=== PATIENT | female | born 1950 | race Asian ===

== ENCOUNTER 2016-06-23 08:00 | Outpatient (CLI) | payer MEDICARE, OTHER | END 2016-06-23 08:01 | disposition home or self-care (01) | DX: K21.9 Gastro-esophageal reflux disease without esophagitis (principal) ==

== ENCOUNTER 2016-08-21 14:25 | Inpatient (IN) | payer MEDICARE, OTHER ==
--- NOTE | 2016-08-21 14:42 | ED Physician Documentation ---
PD HPI CHEST PAIN - Stated complaint Stated Complaint: SOA/SWEATS/CHILLS - Chief complaint Chief Complaint: Cardiac - History obtained from History obtained from: Patient, Family () - History of Present Illness Timing - onset: Other (For the last month or so she has had intermittent global headaches, she has a pulsation and especially this is in the right temporal artery. It has been associated with myalgias and fatigue. Today she was gardening and felt sudden onset shortness of breath and central diffuse chest pain radiating to the back which is now better. The pain is gone but she still has mild trouble breathing. She has not had any visual changes in this time course.) Review of Systems Ten Systems: 10 systems reviewed and negative Constitutional: reports: Fatigue. 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 - Present Medications Home Medications: Ambulatory Orders Medication Instructions Recorded Confirmed No Known Home Medications [No 08/21/16 08/21/16 Known Home Medications] - Allergies Allergies/Adverse Reactions: Allergies Allergy/AdvReac Type Severity Reaction Status Date / Time wasp Allergy Edema Uncoded 08/21/16 14:39 - Social History Does the pt smoke?: No Smoking Status: Never smoker Does the pt drink ETOH?: No Does the pt have substance abuse?: No - Family History Family history: reports: Non contributory PD ED PE NORMAL - Vitals Vital signs reviewed: Yes - General General: Alert and oriented X 3, No acute distress - HEENT HEENT: PERRL, EOMI, Pharynx benign, Dentition benign - Neck Neck: Supple, no meningeal sign, No bony TTP - Cardiac Cardiac: RRR, No murmur - Respiratory Respiratory: No respiratory distress, Clear bilaterally - Abdomen Abdomen: Normal bowel sounds, Soft, Non tender - Extremities Extremities: No edema, No calf tenderness / cord - Neuro Neuro: Alert and oriented X 3, 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, No motor deficit, No sensory deficit, Normal speech - Psych Psych: Normal mood, Normal affect Results - Vitals Vitals: Vital Signs - 24 hr 08/21/16 08/21/16 08/21/16 14:30 14:33 14:34 Temperature 37.4 C Heart Rate 101 H Respiratory 20 Rate Blood Pressure 136/87 H Blood Pressure 131/66 H [Left] Blood Pressure 136/67 H [Right] O2 Saturation 94 08/21/16 08/21/16 15:49 15:55 Temperature Heart Rate 87 Respiratory 18 Rate Blood Pressure 130/68 Blood Pressure [Left] Blood Pressure [Right] O2 Saturation 98 98 Oxygen O2 Source Nasal cannula - EKG (time done) 1434 Rate: Rate (enter#) (102) Rhythm: Sinus tachycardia Jay: Normal QRS: LVH Ischemia: Normal ST segments. No: ST elevation c/w ischemia Computer interpretation: Agree with computer - Labs Labs: Laboratory Tests 08/21/16 08/21/16 08/21/16 14:44 14:45 14:45 WBC 11.6 H RBC 4.40 Hgb 12.6 Hct 38.0 MCV 86.3 MCH 28.5 MCHC 33.1 RDW 14.4 Plt Count 398 MPV 7.0 L Neut # 9.7 H Lymph # 1.1 L Oxford # 0.5 Eos # 0.1 Baso # 0.1 Absolute Nucleated RBC 0.01 Nucleated RBCs 0.1 ESR 47 H D-Dimer Sodium Potassium Chloride Carbon Dioxide Anion Gap BUN Creatinine Estimated GFR (MDRD) Glucose Calcium Total Bilirubin AST ALT Alkaline Phosphatase Troponin I < 0.04 C-Reactive Protein Total Protein Albumin Globulin Albumin/Globulin Ratio Lipase 08/21/16 08/21/16 14:45 14:45 WBC RBC Hgb Hct MCV MCH MCHC RDW Plt Count MPV Neut # Lymph # Oxford # Eos # Baso # Absolute Nucleated RBC Nucleated RBCs ESR D-Dimer 272.3 H Sodium 133 L Potassium 3.3 L Chloride 102 Carbon Dioxide 21 Anion Gap 10.0 BUN 10 Creatinine 0.8 Estimated GFR (MDRD) 71 L Glucose 132 H Calcium 8.4 L Total Bilirubin 1.1 H AST 86 H ALT 83 H Alkaline Phosphatase 192 H Troponin I C-Reactive Protein 18.8 H Total Protein 7.0 Albumin 3.2 Globulin 3.8 Albumin/Globulin Ratio 0.8 L Lipase 25 - Rads (name of study) Ct Head Radiology: EMP read contemporaneously (atrophy NAD) CXR Radiology: EMP read contemporaneously (normal) PD MEDICAL DECISION MAKING - ED course ED course: Relatively healthy 58-year-old woman presents with a few weeks of ongoing headaches, some concern based on her description for temporal arteritis and she does have elevated inflammatory markers, although not markedly so. Today she had an episode of exertional chest pain and shortness of breath. She has a d- dimer which is below most levels of suspicion for PE. She does have evidence of hepatic inflammation. She does not drink alcohol and she has no tenderness over the gallbladder. Given the chest pain she will be placed in observation for rule out, but would probably also benefit from abdominal ultrasound, and interval follow-up for evaluation for probable temporal artery biopsy. Called to Dr. Potter for admission at 4 PM. Departure - Departure Disposition: ED Place in Observation Clinical Impression: Elevated liver enzymes Headache Qualifiers: Headache type: unspecified Headache chronicity pattern: acute headache Intractability: not intractable Qualified Code(s): R51 - Headache Chest pain Qualifiers: Chest pain type: unspecified Qualified Code(s): R07.9 - Chest pain, unspecified Condition: Stable
[2016-08-21 14:50] LABS: BASOPHILS # (AUTO) 0.1 10^3/uL (0.0-0.1); BASOPHILS % (AUTO) 0.9 %; EOSINOPHILS # (AUTO) 0.1 10^3/uL (0.0-0.7); HGB - HEMOGLOBIN 12.6 g/dL (12.0-16.0); LYMPHOCYTES # (AUTO) 1.1 10^3/uL (1.5-3.5); LYMPHOCYTES % (AUTO) 9.8 %; MEAN CORPUSCULAR HEMOGLOBIN 28.5 pg (27.0-31.0); MEAN CORPUSCULAR HGB CONC 33.1 g/dL (32.0-36.0); MEAN CORPUSCULAR VOLUME 86.3 fL (81.0-99.0); MONOCYTES # (AUTO) 0.5 10^3/uL (0.0-1.0); MONOCYTES % (AUTO) 4.3 %; NEUTROPHILS # (AUTO) 9.7 10^3/uL (1.5-6.6); NUCLEATED RED BLOOD CELLS AUTO 0.1 /100WBC; RED CELL DISTRIBUTION WIDTH 14.4 % (12.0-15.0); UNCORRECTED WHITE BLOOD COUNT 11.6 x10^3/uL; WHITE BLOOD COUNT 11.6 x10^3/uL (4.8-10.8)
[2016-08-21 15:24] LABS: ALBUMIN/GLOBULIN RATIO 0.8 (1.0-2.2); BILIRUBIN,TOTAL 1.1 mg/dL (0.2-1.0); CALCIUM 8.4 mg/dL (8.5-10.3); CREATININE 0.8 mg/dL (0.4-1.0); POTASSIUM 3.3 mmol/L (3.5-5.0)
--- NOTE | 2016-08-21 15:28 | CT Preliminary Report ---
Exam: CT Head W/O IMPRESSION: 1. Mild generalized age-related atrophy. 2. No acute intracranial abnormality. [facility] SITE ID: [id number]
--- NOTE | 2016-08-21 15:30 | CT Report ---
EXAM: CT HEAD EXAM DATE: 08/21/2016 03:06 PM. CLINICAL HISTORY: Headaches. COMPARISON: None. TECHNIQUE: Multiaxial CT images were obtained from the foramen magnum to the vertex. IV contrast: Non e. Reformats: Coronal. In accordance with CT protocol optimization, one or more of the following dose reduction techniques w ere utilized for this exam: automated exposure control, adjustment of mA and/or KV based on patient s ize, or use of iterative reconstructive technique. FINDINGS: Parenchyma: No intraparenchymal hemorrhage, mass effect, or CT findings of evolving acute/subacute in farct. Frank-white differentiation is distinct. Extraaxial Spaces: Mild diffuse sulcal prominence, compatible with generalized atrophy, within expect ed limits for patient age. No subdural or epidural collections identified. Ventricles: Normal in size and position. Sinuses: Imaged paranasal sinuses, orbits, and mastoids show no significant abnormality. Bones: No evidence of fracture or calvarial defect. Other: . Mild atherosclerotic calcifications of the bilateral cavernous internal carotid arteries. IMPRESSION: 1. Mild generalized age-related atrophy. 2. No acute intracranial abnormality. [facility] Referring Provider Line: [phone] SITE ID: [id number]
--- NOTE | 2016-08-21 15:31 | XRAY Preliminary Report ---
Exam: XR Chest 2 View PA/LAT IMPRESSION: Normal 2-view chest radiography. [facility] SITE ID: [id number]
--- NOTE | 2016-08-21 15:34 | XRAY Report ---
EXAM: CHEST RADIOGRAPHY EXAM DATE: 08/21/2016 03:20 PM. CLINICAL HISTORY: Chest pain dyspnea. COMPARISON: None. TECHNIQUE: 2 views. FINDINGS: Lungs/Pleura: No focal opacities evident. No pleural effusion. No pneumothorax. Normal volumes. Mediastinum: Heart and mediastinal contours are unremarkable. Other: None. IMPRESSION: Normal 2-view chest radiography. [facility] Referring Provider Line: [phone] SITE ID: [id number]
[2016-08-21] MEDS ORDERED: ASPIRIN CHEW 81 MG TABLET PO STA (15:59)
[2016-08-21] MEDS ORDERED: ASPIRIN CHEW 81 MG TABLET ONE (16:10)
[2016-08-21] MEDS ORDERED: ONDANSETRON 4 MG/2 ML VIAL IVP PRN (17:21)
[2016-08-21] MEDS ORDERED: ZOLPIDEM 5 MG TABLET PO PRN (17:21)
[2016-08-21] MEDS ORDERED: ACETAMINOPHEN 325 MG TABLET PO PRN (17:21)
[2016-08-21] MEDS ORDERED: SODIUM CHLORIDE FLUSH 0.9% 10 ML SYRINGE IVP PRN (17:21)
[2016-08-21] MEDS ORDERED: IOPAMIDOL-300 100 ML VIAL IVP ONE (17:29)
[2016-08-21] MEDS ORDERED: NITROGLYCERIN SL 0.4 MG TABLET SL PRN (17:30)
[2016-08-21] MEDS ORDERED: POTASSIUM CHLORIDE 20 MEQ TABLET PO SCH (17:46)
[2016-08-21] MEDS ORDERED: SODIUM CHLORIDE 0.9% 1,000 ML IV SCH (18:00)
[2016-08-21 18:03] LABS: CHOL/HDL RATIO 4.5 (<4.4); CHOLESTEROL 134 mg/dL; HDL CHOLESTEROL 30 mg/dL; LDL/HDL RATIO 2.8 (<4.4); TRIGLYCERIDES 99 mg/dL; VLDL CHOLESTEROL 20 mg/dL
--- NOTE | 2016-08-21 18:04 | CT Preliminary Report ---
Exam: CT Chest Angio (PE) IMPRESSION: 1. No evidence for pulmonary emboli. 2. Prominent subcarinal lymph node measuring 9 mm. 3. Mild to moderate patchy airspace disease most prominent at the right upper lobe and left lower lob e. Mild diffuse hazy opacities in the lungs. These are concerning for infectious/inflammatory disease . [facility] SITE ID: [id number]
--- NOTE | 2016-08-21 18:07 | CT Report ---
EXAM: CT ANGIOGRAM CHEST EXAM DATE: 08/21/2016 05:36 PM. CLINICAL HISTORY: Chest pain COMPARISON: None. TECHNIQUE: Routine helical imaging was performed through the chest in the pulmonary arterial phase. I V Contrast: 100 mL Isovue 300. Reconstructions: Coronal 3-D MIP reconstructions.Sagittal and coronal. In accordance with CT protocol optimization, one or more of the following dose reduction techniques w ere utilized for this exam: automated exposure control, adjustment of mA and/or KV based on patient s ize, or use of iterative reconstructive technique. FINDINGS: Pulmonary Arteries: No evidence for pulmonary emboli. Lungs/Pleura: Mild to moderate patchy airspace disease most prominent at the right upper lobe and lef t lower lobe. Mild diffuse hazy opacities in the lungs. These are concerning for infectious/inflammat ory disease. Mediastinum: Normal heart size. Coronary artery calcification.. Prominent subcarinal lymph node measu ring 9 mm. Mildly prominent right hilar lymph node measuring 5 mm. Thoracic Aorta: Unremarkable. Upper Abdomen: Unremarkable. Other: No acute bone findings. IMPRESSION: 1. No evidence for pulmonary emboli. 2. Prominent subcarinal lymph node measuring 9 mm. 3. Mild to moderate patchy airspace disease most prominent at the right upper lobe and left lower lob e. Mild diffuse hazy opacities in the lungs. These are concerning for infectious/inflammatory disease . [facility] Referring Provider Line: [phone] SITE ID: [id number]
[2016-08-21] MEDS ORDERED: IPRATROPIUM/ALBUTEROL 3 ML NEB INH PRN (18:17)
[2016-08-21] MEDS ORDERED: ALBUTEROL 8 GM INHALER INH PRN (18:19)
[2016-08-21] MEDS: SODIUM CHLORIDE FLUSH 0.9% 10 ML SYRINGE IVP SCH (18:25)
--- NOTE | 2016-08-21 18:25 | Ultrasound Preliminary Report ---
Exam: US Abdomen Limited IMPRESSION: Contracted gallbladder. No evidence of biliary obstruction. Echogenic liver. [facility] SITE ID: [id number]
--- NOTE | 2016-08-21 18:28 | Ultrasound Report ---
EXAM: ABDOMEN ULTRASOUND LIMITED, RUQ EXAM DATE: 08/21/2016 06:10 PM. CLINICAL HISTORY: Transaminitis. COMPARISON: None. TECHNIQUE: Real-time scanning was performed with static images obtained. FINDINGS: Liver: The liver is echogenic, compatible with fatty infiltration, with focal sparing adjacent to the falciform. Incidental 1.5 cm hemangioma is noted in the left lobe. 13 cm. Main portal vein flow: Hep atopetal. Gallbladder: Contracted. No definite calculus. Biliary System: CBD measures 3 mm. No intrahepatic or extrahepatic ductal dilatation. Other: None. IMPRESSION: Contracted gallbladder. No evidence of biliary obstruction. Echogenic liver. [facility] Referring Provider Line: [phone] SITE ID: [id number]
[2016-08-21] MEDS ORDERED: ALBUTEROL NEB 2.5 MG/3 ML INH PRN (18:45)
[2016-08-21] MEDS ORDERED: NS W/20 MEQ KCL 1,000 ML IV SCH (19:00)
[2016-08-22 03:15] LABS: BASOPHILS # (AUTO) 0.1 10^3/uL (0.0-0.1); BASOPHILS % (AUTO) 0.7 %; EOSINOPHILS # (AUTO) 0.3 10^3/uL (0.0-0.7); EOSINOPHILS % (AUTO) 2.8 %; LYMPHOCYTES # (AUTO) 1.2 10^3/uL (1.5-3.5); LYMPHOCYTES % (AUTO) 10.5 %; MEAN CORPUSCULAR HEMOGLOBIN 28.2 pg (27.0-31.0); MEAN CORPUSCULAR HGB CONC 32.4 g/dL (32.0-36.0); MEAN CORPUSCULAR VOLUME 87.1 fL (81.0-99.0); MEAN PLATELET VOLUME 6.8 fL (7.9-10.8); MONOCYTES # (AUTO) 0.7 10^3/uL (0.0-1.0); MONOCYTES % (AUTO) 5.9 %; NEUTROPHILS # (AUTO) 8.9 10^3/uL (1.5-6.6); NEUTROPHILS % (AUTO) 80.1 %; RED BLOOD COUNT 4.25 10^6/uL (4.20-5.40); UNCORRECTED WHITE BLOOD COUNT 11.2 x10^3/uL; WHITE BLOOD COUNT 11.2 x10^3/uL (4.8-10.8)
[2016-08-22 03:36] LABS: ALBUMIN/GLOBULIN RATIO 0.8 (1.0-2.2); BILIRUBIN,TOTAL 0.8 mg/dL (0.2-1.0); CALCIUM 8.3 mg/dL (8.5-10.3); CREATININE 0.7 mg/dL (0.4-1.0); POTASSIUM 4.3 mmol/L (3.5-5.0); TOTAL PROTEIN 6.4 g/dL (6.7-8.2)
[2016-08-22] MEDS: SODIUM CHLORIDE FLUSH 0.9% 10 ML SYRINGE IVP SCH ×3 (05:21→21:27)
[2016-08-22] MEDS: AZTREONAM 1 GM in SODIUM CHLORIDE 0.9% MINIBAG 100 ML IV SCH ×3 (08:20→21:26)
[2016-08-22] MEDS: SODIUM CHLORIDE 0.9% 1,000 ML IV SCH ×2 (08:21→22:48)
[2016-08-22] MEDS: ASPIRIN EC 81 MG TABLET PO SCH (08:24)
[2016-08-22] MEDS: FAMOTIDINE 20 MG TABLET PO SCH (08:24)
[2016-08-22] MEDS: predniSONE 20 MG TABLET PO SCH (08:26)
--- NOTE | 2016-08-22 08:29 | HISTORY & PHYSICAL EXAMINATION ---
Chief Complaint - Chief Complaint Chief Complaint: chest pain and headache History of Present Illness - Admitted From Admitted From:: emergence room - History Obtained From Records Reviewed: yes History obtained from: patient and her - History of Present Illness Pain/Problem Location Description: midsternal chest pressure and pain Severity: 5/10 Quality: pressure Timing: morning at 08/21/16 Associated Symptoms: short of air and sweating HPI Comment/Other: 66 years-old female without significant past medical history, who present emergence department for evaluation of headache, chest pain and shortness of air. Patient reports she has bee on intermittent global headache from the frontier to the posterior for one month. She also report she a pulsation feeling at her right temporal area about one week when she had headache. It has been associated with fatigue and myalgias as well. She denies blurring vision or any vision changing. Upon examination on patient, there is no any tenderness , warm or external pulsation at her right temporal area. Patient also report she suddenly develop shortness of air when she was gardening. Also she had chest pressure and pain at her midsternal area. She reports " it likes a elephant sitting on my chest." The pain radiates to her left shoulder as well. She report diaphoresis was associated with her chest pain. She denies nausea, vomiting or diarrhea. Patient report she had a fever couple days ago but she did not measure how much the temperature was. Per emergence nurse report, patient had O2 saturation at mid 80 when she went to the bathroom. patient's O2 saturation is 96% at 2 liter NC. Patient report she has been on healthy status until 2-3 months ago she had discomfort abdomen, bloating stomach and loose stool. She visited her PCP. She report her PCP report to her all her tests were fine. Patient also report after she had 324 mg Aspirin at emergence room, she do feel much better. Lab test reveals WBC 11.6 and left shift, ESR 47, CRP 18.8, AST 86 and ALT 83, Alkaline Phosphatase 192, initiate troponin <0.04, D-Dimer 272.3. EKG shows sinus tachycardia at 102, borderline T abnormality. CXR shows normal 2-view chest radiography. CT of head reveals no acute finding. Due to elevated liver enzyme, US of gallbladder was ordered. The result reveals no evidence of biliary obstruction, echogenic liver. CT angio shows no evidence of PE. in the upper right lobe and left lower lobe, there is concerning for infectious/ inflammatory disease. Patient is admitted for chest pain R/O ACS, pneumonia, and possible temporal arteritis. Review of Systems - Constitutional Constitutional: reports: Fatigue, Fever, Chills, Malaise, Diaphoresis. denies: Weakness, Poor appetite, Night sweats, Weight gain, Weight loss, Other - Eyes Eyes: denies: Pain, Irritation, Amaurosis, Blurred vision, Spots in vision, Field loss, Vision loss, Dipolpia, Corrective lenses, Other - Ears, Nose & Throat Ears, Nose & Throat: denies: Ear pain, Hearing loss, Hearing aids, Tinnitus, Vertigo, Nasal pain, Nasal discharge, Nosebleeds, Nasal obstruction, Nasal congestion, Postnasal drainage, Dentures, Sore throat, Hoarseness, Mouth lesions , Bleeding gums, Dental decay, Dental pain, Other - Cardiovascular Cariovascular: reports: Chest pain. denies: Irregular heart rate, Palpitations , Edema, Lightheadedness, Syncope, Exertional dyspnea, Decr. exercise tolerance , Orthopnea, Other - Respiratory Respiratory: reports: SOB with exertion. denies: Cough, Sputum production, Wheezing, Snoring, Hemoptysis, Orthopnea, SOB at rest, Apnea, Stridor, Pleuritic pain, Other - Gastrointestinal Gastrointestinal: denies: Abdominal pain, Abdominal distention, Constipation, Diarrhea, Change in bowel habits, Rectal bleeding, Black stools, Bloody stools, Nausea, Vomiting, Bile emesis, Marcus blood emesis, Coffee grounds emesis, Reflux /heartburn, Bloating, Poor appetite, Other - Genitourinary Genitourinary: denies: Dysuria, Frequency, Urgency, Hematuria, Incontinence, Flank pain, Nocturia, Urethral discharge, Sexual dysfunction, Other - Musculoskeletal Musculoskeletal: denies: Muscle pain, Back pain, Muscle aches, Stiffness, Limited range of motion, Muscle weakness, Gout, Joint pain, Joint swelling, Other - Integumentary Integumentary: denies: Rash, Pruritis, Lesions, Dryness, Lumps, Acne, Pigment changes, Nail changes, Hair changes, Other - Neurological Neurological: denies: General weakness, Focal weakness, Headache, Dizziness, Numbness, Memory problems, Pre-existing deficit, Abnormal gait, Seizures, Incoordination, Slurred speech, Other - Psychiatric Psychiatric: denies: Depression, Anxiety, Suicidal, Delusions, Hallucinations, Homicidal, Other - Hematologic/Lymphatic Hematologic/Lymphatic: denies: Anemia, Bruising, Petechiae, Blood clots, Lymphadenopathy, Bleeding tendencies, Recurrent infections, Other History - 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 - Family & Social History Family History: Mother: (HTN) Meds/Allgy - Home Medications Home Medications: Ambulatory Orders Medication Instructions Recorded Confirmed Epinephrine [Epipen 2-Lazaro] 0.3 mg IJ PRN PRN 08/21/16 08/21/16 - Allergies Allergies/Adverse Reactions: Allergies Allergy/AdvReac Type Severity Reaction Status Date / Time amoxicillin Allergy Severe Rash Verified 08/21/16 16:28 bee venom protein (honey bee) Allergy Severe Edema Verified 08/21/16 16:28 venom-wasp Allergy Severe Edema Verified 08/21/16 16:28 Exam - Vital Signs Vital Signs: Vital Signs x48h Temp Pulse Pulse Pulse Resp BP BP 08/22/16 08:15 36.8 C 88 17 120/78 08/22/16 07:50 81 18 08/22/16 04:55 36.9 C 78 16 123/77 Pulse Ox 08/22/16 08:15 90 L 08/22/16 07:50 08/22/16 04:55 95 - Physical Exam General Appearance: positive: No acute distress, Alert. negative: Mild distress , Moderate distress, Severe distress, Anxious, Lethargic, Other Eyes Bilateral: positive: Normal inspection, PERRL, EOMI, No lid inflammation, Conjunctivae nml, No scleral icterus ENT: positive: ENT inspection nml, Pharynx nml, No signs of dehydration. negative: Purulent nasal drainage, Pharyngeal erythema, Oral lesions, Dry mucous membranes, Other Neck: positive: Nml inspection, Thyroid nml, No JVD, Trachea midline. negative : Thyromegaly, Lymphadenopathy (R), Lymphadenopathy (L), Stiff neck, Kernig's sign, Brudzinski's sign, Carotid bruit, Swelling/bruising, Tracheal deviation, Other Respiratory: positive: Chest non-tender, No respiratory distress, Rhonchi ( bilateral lower lobes). negative: Breath sounds nml, Wheezes, Rales, Other Cardiovascular: positive: Regular rate & rhythm, No murmur, No gallop. negative : Irregularly irregular, Extrasystoles, Tachycardia, Bradycardia, PMI displaced laterally, JVD present, Systolic murmur, Diastolic murmur, Gallop/S3, Gallop/S4 , Friction rub, Decreased pulse(s), Crepitus, Other Peripheral Pulses: positive: 2+. negative: 1+, 0, Other Abdomen: positive: Non-tender, Nml bowel sounds, No distention. negative: No organomegaly, Tenderness, Guarding, Rebound, Hepatomegaly, Splenomegaly, Mass, Abnml bowel sounds, Bruit, Other Back: positive: Nml inspection. negative: CVA tenderness (R), CVA tenderness (L ), Other Skin: positive: Color nml, No rash, Warm, Diaphoresis. negative: Dry, Cyanosis , Pallor, Skin rash, Decubitus, Laceration (cm), Puncture wound, Embolic lesions , Other Extremities: positive: Non-tender, Full ROM, Nml appearance, No pedal edema. negative: Pedal edema, Calf tenderness, Joint swelling, Saul's sign/cords, Other Neurologic/Psychiatric: positive: Oriented x3, CN's nml (2-12), Motor nml, Sensation nml, Mood/affect nml. negative: Disoriented to person, Disoriented to place, Disoriented to time, Weakness, Sensory loss, Facial droop, Slurred/ abnml speech, Depressed mood/affect, Other Conclusion/Plan - Problem List (1) Chest pain, rule out acute myocardial infarction Conclusion/Plan: no more chest pain after first episode, two serial troponin are negatvie, EKG unremarkable, likely atypical chest pain continue third troponin nitro/EKG PRN Aspirin on tele, closely monitor ECHO, patient does not have any cardiac workup. (2) Acute and chronic respiratory failure with hypoxia Conclusion/Plan: Patient never smoke, does not have any history of COPD or asthma or any other documented respiratory problem, may due to acute lung inflammation/infection. patient appears no acute respiratory distressing now. Patient comfortably sit at bed, SO2 94% at room air. concern new onset of COPD Albuteral INH PRN Duoneb temporal treated with steroid O2 NC as needed (3) Headache Conclusion/Plan: global headache for one month, CT of head is negative acute process. pt does not have headache now Tylenol PRN, closely monitor Qualifiers: Headache type: unspecified Headache chronicity pattern: acute headache Intractability: not intractable Qualified Code(s): R51 - Headache (4) Pneumonia Conclusion/Plan: CTA indicates upper right lobe and lower left lobe with infection or inflammation. Auscultation of lung shows rhonchi at bilateral lower lobes. Subjectively report fever at home, fatigue and myalgia, lower O2 Saturation at episode, pt came from home with symptoms for about one month. treat for CAP Azithromycin Aztreonam, pt allergy to Amoxicillin blood culture, follow up Pt denies to have sputum (5) Elevated liver enzymes Conclusion/Plan: slight elevated ALT and AST, mild to moderate elevated Alk. US of abdomen shows no evidence of biliary obstruction, pt denies abdomen pain as well, no nausea/ vomiting/ diarrhea. may consider hepatitis panel or other virus infection, hold hepatic toxical agents, closely monitor (6) Elevated sed rate Conclusion/Plan: elevated CRP as well, pt had global headache for one month, but not specific, no vision changing, may concern temporal arteritis Pt has prednisone treated for her inflammatory lung continue to check CRP and SER, closely monitor if need further investigation for biopsy (7) DVT prophylaxis Conclusion/Plan: Lovenox and SCD for DVT For GI prophylaxis, pepcid - Lab Results Fish Bones: 08/22/16 03:05 08/22/16 03:05 Issues/Core Measures - Anticipated LOS Anticipated Stay Length: 2 or more midnights (pneumonia)
[2016-08-22] MEDS: AZITHROMYCIN INJ 500 MG in SODIUM CHLORIDE 0.9% 250 ML IV SCH (08:59)
[2016-08-22] MEDS ORDERED: predniSONE 20 MG TABLET PO SCH (09:00)
[2016-08-22] MEDS: POLYETHYLENE GLYCOL 3350 17 GM PACKET PO SCH (09:01)
[2016-08-22] MEDS: ENOXAPARIN 40 MG/0.4 ML SYRINGE SUBQ SCH (09:01)
--- NOTE | 2016-08-22 11:56 | PROVIDER PROGRESS NOTE ---
Subjective - Subjective Pt reports feeling: Improved Subjective: pt initially state she want to be D/C home, then she change idea and state she stay hospital for one more night Objective - Vital Signs/Intake & Output Vital Signs: Vital Signs x48h Temp Pulse Pulse Pulse Resp BP BP 08/22/16 08:15 36.8 C 88 17 120/78 08/22/16 07:50 81 18 08/22/16 04:55 36.9 C 78 16 123/77 Pulse Ox 08/22/16 08:15 90 L 08/22/16 07:50 08/22/16 04:55 95 Intake & Output: Intake & Output 08/19/16 08/20/16 08/21/16 08/22/16 23:59 23:59 23:59 23:59 Intake Total 322 1325 Balance 322 1325 - Objective General Appearance: positive: No acute distress, Alert. negative: Mild distress , Moderate distress, Severe distress, Anxious, Lethargic, Other Eyes Bilateral: positive: Normal inspection, PERRL, EOMI, No lid inflammation, Conjunctivae nml, No scleral icterus. negative: Other ENT: positive: ENT inspection nml, Pharynx nml, No signs of dehydration. negative: Purulent nasal drainage, Pharyngeal erythema, Oral lesions, Dry mucous membranes, Other Neck: positive: Nml inspection, Thyroid nml, No JVD, Trachea midline. negative : Thyromegaly, Lymphadenopathy (R), Lymphadenopathy (L), Stiff neck, Kernig's sign, Brudzinski's sign, Carotid bruit, Swelling/bruising, Tracheal deviation, Other Respiratory: positive: Chest non-tender, No respiratory distress, Other ( rhonchi at bilateral lower lobes). negative: Breath sounds nml, Wheezes, Rales , Rhonchi Cardiovascular: positive: Regular rate & rhythm, No murmur, No gallop. negative : Irregularly irregular, Extrasystoles, Tachycardia, Bradycardia, PMI displaced laterally, JVD present, Systolic murmur, Diastolic murmur, Gallop/S3, Gallop/S4 , Friction rub, Decreased pulse(s), Crepitus, Other Peripheral Pulses: 2+ Radial (R), 2+ Radial (L), 2+ Dorsalis pedis (R), 2+ Dorsalis pedis (L) Abdomen: positive: Non-tender, Nml bowel sounds, No distention. negative: No organomegaly, Tenderness, Guarding, Rebound, Hepatomegaly, Splenomegaly, Mass, Abnml bowel sounds, Bruit, Other Back: positive: Nml inspection. negative: CVA tenderness (R), CVA tenderness (L ), Other Skin: positive: Color nml, Warm. negative: No rash, Dry, Cyanosis, Diaphoresis , Pallor, Skin rash, Decubitus, Laceration (cm), Puncture wound, Embolic lesions , Other Extremities: positive: Non-tender, Full ROM, Nml appearance, No pedal edema. negative: Pedal edema, Calf tenderness, Joint swelling, Saul's sign/cords, Other Neurologic/Psychiatric: positive: Oriented x3, CN's nml (2-12), Motor nml, Sensation nml, Mood/affect nml. negative: Disoriented to person, Disoriented to place, Disoriented to time, Weakness, Sensory loss, Facial droop, Slurred/ abnml speech, Depressed mood/affect, Other - Lab Results Fish Bones: 08/22/16 03:05 08/22/16 03:05 Other Labs: Lab Results x24hrs 08/22/16 08/22/16 08/22/16 Range/Units 03:05 03:05 03:05 WBC 11.2 H (4.8-10.8) x10^3/uL RBC 4.25 (4.20-5.40) 10^6/uL Hgb 12.0 (12.0-16.0) g/dL Hct 37.0 (37.0-47.0) % MCV 87.1 (81.0-99.0) fL MCH 28.2 (27.0-31.0) pg MCHC 32.4 (32.0-36.0) g/dL RDW 14.0 (12.0-15.0) % Plt Count 407 (130-450) 10^3/uL MPV 6.8 L (7.9-10.8) fL Neut # 8.9 H (1.5-6.6) 10^3/uL Lymph # 1.2 L (1.5-3.5) 10^3/uL [place] # 0.7 (0.0-1.0) 10^3/uL Eos # 0.3 (0.0-0.7) 10^3/uL Baso # 0.1 (0.0-0.1) 10^3/uL Absolute Nucleated RBC 0.00 x10^3/uL Nucleated RBCs 0.0 /100WBC Sodium 133 L (135-145) mmol/L Potassium 4.3 (3.5-5.0) mmol/L Chloride 105 (101-111) mmol/L Carbon Dioxide 21 (21-32) mmol/L Anion Gap 7.0 (6-13) BUN 10 (6-20) mg/dL Creatinine 0.7 (0.4-1.0) mg/dL Estimated GFR (MDRD) 83 L (>89) Glucose 113 H (70-100) mg/dL Calcium 8.3 L (8.5-10.3) mg/dL Total Bilirubin 0.8 (0.2-1.0) mg/dL AST 51 H (10-42) IU/L ALT 69 H (10-60) IU/L Alkaline Phosphatase 193 H (42-121) IU/L Troponin I < 0.04 (<0.49) ng/mL Total Protein 6.4 L (6.7-8.2) g/dL Albumin 2.8 L (3.2-5.5) g/dL Globulin 3.6 (2.1-4.2) g/dL Albumin/Globulin Ratio 0.8 L (1.0-2.2) 08/21/16 Range/Units 21:01 WBC (4.8-10.8) x10^3/uL RBC (4.20-5.40) 10^6/uL Hgb (12.0-16.0) g/dL Hct (37.0-47.0) % MCV (81.0-99.0) fL MCH (27.0-31.0) pg MCHC (32.0-36.0) g/dL RDW (12.0-15.0) % Plt Count (130-450) 10^3/uL MPV (7.9-10.8) fL Neut # (1.5-6.6) 10^3/uL Lymph # (1.5-3.5) 10^3/uL [place] # (0.0-1.0) 10^3/uL Eos # (0.0-0.7) 10^3/uL Baso # (0.0-0.1) 10^3/uL Absolute Nucleated RBC x10^3/uL Nucleated RBCs /100WBC Sodium (135-145) mmol/L Potassium (3.5-5.0) mmol/L Chloride (101-111) mmol/L Carbon Dioxide (21-32) mmol/L Anion Gap (6-13) BUN (6-20) mg/dL Creatinine (0.4-1.0) mg/dL Estimated GFR (MDRD) (>89) Glucose (70-100) mg/dL Calcium (8.5-10.3) mg/dL Total Bilirubin (0.2-1.0) mg/dL AST (10-42) IU/L ALT (10-60) IU/L Alkaline Phosphatase (42-121) IU/L Troponin I < 0.04 (<0.49) ng/mL Total Protein (6.7-8.2) g/dL Albumin (3.2-5.5) g/dL Globulin (2.1-4.2) g/dL Albumin/Globulin Ratio (1.0-2.2) Assessment/Plan - Problem List (1) Chest pain, rule out acute myocardial infarction Impression: no more chest pain, ECHO pending (2) Acute and chronic respiratory failure with hypoxia Impression: pt refuse to use O2 NC, she does not have respiratory distressing currently (3) Headache Qualifiers: Headache type: unspecified Headache chronicity pattern: acute headache Intractability: not intractable Qualified Code(s): R51 - Headache (6) Elevated sed rate Impression: order continue to check CRP and ESR
[2016-08-22] MEDS: IPRATROPIUM/ALBUTEROL 3 ML NEB INH SCH ×3 (12:49→19:39)
[2016-08-23] MEDS: AZTREONAM 1 GM in SODIUM CHLORIDE 0.9% MINIBAG 100 ML IV SCH ×2 (04:39→09:59)
[2016-08-23] MEDS: SODIUM CHLORIDE FLUSH 0.9% 10 ML SYRINGE IVP SCH (05:50)
[2016-08-23] MEDS: IPRATROPIUM/ALBUTEROL 3 ML NEB INH SCH ×2 (07:30→11:20)
[2016-08-23 07:46] VITALS: BP 128/74
[2016-08-23] MEDS: predniSONE 20 MG TABLET PO SCH (08:34)
[2016-08-23] MEDS: ENOXAPARIN 40 MG/0.4 ML SYRINGE SUBQ SCH (08:34)
[2016-08-23] MEDS: FAMOTIDINE 20 MG TABLET PO SCH (08:34)
[2016-08-23] MEDS: ASPIRIN EC 81 MG TABLET PO SCH (08:34)
[2016-08-23] MEDS: AZITHROMYCIN INJ 500 MG in SODIUM CHLORIDE 0.9% 250 ML IV SCH (08:34)
[2016-08-23] MEDS: POLYETHYLENE GLYCOL 3350 17 GM PACKET PO SCH (08:35)
[2016-08-23] MEDS: SODIUM CHLORIDE 0.9% 1,000 ML IV SCH (09:59)
--- NOTE | 2016-08-23 11:55 | Discharge Plan ---
Discharge Plan Disposition: 01 Home, Self Care Condition: Stable Prescriptions: predniSONE [Deltasone] 40 mg PO DAILYWM #6 tablet Albuterol Sulfate [Proair Hfa Inhaler] 1 - 2 puffs INH Q4H PRN #1 inhaler PRN Reason: Shortness Of Air/Wheezing Azithromycin [Zithromax] 250 mg PO DAILY #5 Diet: Regular Activity Restrictions: No Restrictions Shower Restrictions: No Driving Restrictions: No Additional Instructions or Follow Up instructions: You have pneumonia, you will continue azithromycin to treat this. You can use albuterol inhaler for shortness of breath or wheezing. You need to see your PCP in a week for chest x-ray to ensure this resolves. Your headache and temporal pain is concerning, you have been started on steroids and symptoms resolved. If symptoms return contact Dr Turner for further work-up. No Smoking: If you smoke, Please STOP! Call for help. Follow-up with: Kelsey Turner DO [Primary Care Provider] - 1 Week
--- NOTE | 2016-08-23 13:34 | DISCHARGE SUMMARY ---
DATE OF ADMISSION: 08/21/2016 DATE OF DISCHARGE: 08/23/2016 DISCHARGING PROVIDER: INA uMnoz PRIMARY CARE PROVIDER: Kelesy Turner D.O. DISCHARGE DIAGNOSES 1. Community-acquired pneumonia. 2. Headache. 3. Elevated liver function tests. DISCHARGE MEDICATION LIST 1. Tylenol 650 mg 5 mL every 4 hours as needed for pain. 2. Albuterol inhaler 1 to 2 puffs every 4 hours as needed for shortness of breath or wheezing. 3. Azithromycin 250 mg by mouth daily x3 more days. 4. Prednisone 40 mg by mouth daily. FOLLOWUP: Patient is to follow up with Dr. Kelsey Turner in 1 week for a repeat chest x-ray to ensure resolution of her community-acquired pneumonia. If right temporal pain and pulsations with headache return after stopping steroids, further workup would be necessary. HISTORY OF PRESENT ILLNESS: The patient is a pleasant 66-year-old female with no significant pa medical history who presented to the emergency room with complaints of chest pain and shortness of air that began shortly before arrival. She also had reports of headache for the last month, with rig ht temporal pain, sensitivity, and pulsation. She was noted in the emergency department to have a min imally elevated WBC of 11.6, negative troponin, and a D-dimer of 272. CTA was obtained to rule out PE and it revealed a right upper lobe and left lower leg patchy infiltrate concerning for pneumonia. Th e patient was therefore hospitalized. HOSPITAL COURSE: The patient was admitted to the medical/surgical floor in stable condition. Her radha l signs were within normal limits. She had no significant hypoxia but was briefly on oxygen per nasal cannula for her symptomatic shortness of breath. She was started on aztreonam and azithromycin IV fo r her community-acquired pneumonia, in addition to albuterol and DuoNebs for shortness of breath. She was given prednisone 40 mg daily which she has had no significant side effects from. On admission, patient was noted to have elevated total bilirubin 1.1, AST 86, ALT 83, alkaline phosph atase 192. These improved to 0.8, 51, 69, 193, respectively. Imaging without focal biliary or hepatic disease. Lipid panel within normal limits. Lipase normal. The morning of 08/23/2016, the patient is completely asymptomatic, feels her usual self, no shortness of breath, no chest pain, no headache or right temporal pain. Patient was noted to have elevated CRP of 18 and ESR 47. With this finding and her minimally elevated LFTs, there was concern for temporal or giant cell arteritis. She had no other neurological symptoms, absolutely no vision changes, no jaw pain, no ENT symptoms. I discussed the case with Dr. Juan Pablo Olvera of Ophthalmology, who felt this was low risk for giant cell arteritis, but if symptoms returned could follow up with PCP for further workup. The patient was then discharged home with oral antibiotics and steroids, to follow up with her PCP in a week. RADIOLOGY: On 08/21/2016: 1. Chest x-ray. Impression: Normal 2-view chest radiograph. 2. CT of the head. Impression: Mild generalized age-related atrophy, no acute intracranial abnormalit y. 3. Abdominal ultrasound. Impression: Contracted gallbladder, no evidence of biliary obstruction, fatt y infiltration of the liver. 4. CTA chest. Impression: No evidence for pulmonary emboli. Prominent subcarinal lymph node measuring 9 mm. Mild to moderate patchy air space disease, most prominent at the right upper lobe and left low er lobe, mild diffuse hazy opacities in the lungs. These are concerning for infectious inflammatory d isease. PHYSICAL EXAMINATION VITAL SIGNS: Temperature 36.5 degrees Celsius, heart rate 70 beats per minute, blood pressure 128/74, respiratory rate 16 breaths per minute, O2 saturation 97% on room air. GENERAL: Patient is a petite, 66-year-old female sitting on the bed in no acute distress. She i s able to get up independently and ambulate in the room without distress. She has a steady gait. LUNGS: Her respirations are equal and unlabored. She has minimally coarse right upper breath sounds a nd left lower lobe breath sounds. She has no wheezing. CARDIOVASCULAR: She has a regular rate and rhythm. No murmurs, gallops, or rubs. Palpable peripheral pulses and no extremity edema. ABDOMEN: Soft, flat, nontender, with active bowel sounds x4 quadrants. MUSCULOSKELETAL: She has no joint swelling. SKIN: No rashes or wounds. NEUROLOGIC: No focal neurological deficits. HEENT: She has no temporal tenderness, no jaw pain. Time spent on discharge is greater than 30 minutes. JOB #: [id number] EXT JOB #:[id number]
== END 2016-08-23 12:57 | disposition home or self-care (01) | DRG 193 ==
LOC: ED 14:25 → MS 17:22
PROVIDERS: ADMIT Nurse Practitioner Gerontology; ATTEND Nurse Practitioner Acute Care
DX: R07.9 Chest pain, unspecified (principal); J18.9 Pneumonia, unspecified organism; J96.21 Acute and chronic respiratory failure with hypoxia; R51 Headache; R94.5 Abnormal results of liver function studies; R53.83 Other fatigue; Z88.0 Allergy status to penicillin
CPT/HCPCS: 36415; 70450; 71020; 71275; 76705; 80053; 80061; 83605; 83690; 83880; 84484; 85025; 85379; 85651; 86140; 87040; 93005; 93306; 94640; 99283; 99284; 99285

== ENCOUNTER 2016-09-13 09:15 | Outpatient (CLI) | payer MEDICARE, OTHER ==
[2016-09-13 13:11] LABS: BASOPHILS # (AUTO) 0.1 10^3/uL (0.0-0.1); EOSINOPHILS # (AUTO) 0.7 10^3/uL (0.0-0.7); EOSINOPHILS % (AUTO) 7.6 %; HCT - HEMATOCRIT 41.5 % (37.0-47.0); HGB - HEMOGLOBIN 13.2 g/dL (12.0-16.0); LYMPHOCYTES # (AUTO) 2.6 10^3/uL (1.5-3.5); MEAN CORPUSCULAR HEMOGLOBIN 28.4 pg (27.0-31.0); MEAN PLATELET VOLUME 7.7 fL (7.9-10.8); MONOCYTES # (AUTO) 0.5 10^3/uL (0.0-1.0); MONOCYTES % (AUTO) 5.8 %; NEUTROPHILS # (AUTO) 5.3 10^3/uL (1.5-6.6); NEUTROPHILS % (AUTO) 57.6 %; RED BLOOD COUNT 4.66 10^6/uL (4.20-5.40); RED CELL DISTRIBUTION WIDTH 15.1 % (12.0-15.0); UNCORRECTED WHITE BLOOD COUNT 9.3 x10^3/uL; WHITE BLOOD COUNT 9.3 x10^3/uL (4.8-10.8)
[2016-09-13 13:42] LABS: BILIRUBIN,TOTAL 0.4 mg/dL (0.2-1.0); BUN - BLOOD UREA NITROGEN 9 mg/dL (6-20); CALCIUM 9.3 mg/dL (8.5-10.3); CARBON DIOXIDE - CO2 24 mmol/L (21-32); CHLORIDE 105 mmol/L (101-111); CREATININE 0.7 mg/dL (0.4-1.0); GFR - MDRD 83 (>89); GLUCOSE 94 mg/dL (70-100); POTASSIUM 3.9 mmol/L (3.5-5.0); SODIUM 139 mmol/L (135-145); TOTAL PROTEIN 7.7 g/dL (6.7-8.2)
== END 2016-09-13 09:16 | disposition home or self-care (01) ==
LOC: LAB.WCP 09:15
PROVIDERS: ATTEND Family Medicine
DX: J15.9 Unspecified bacterial pneumonia (principal)
CPT/HCPCS: 36415; 80053; 85025; 85651; 86140

== ENCOUNTER 2017-12-18 15:32 | Outpatient (CLI) | payer MEDICARE, OTHER ==
--- NOTE | 2017-12-18 22:53 | XRAY Report ---
Reason: KNEE PAIN,LEFT AND RIGHT Procedure Date: 12/18/2017 Accession Number: [id number] / [id number] Procedure: XR - Knee 2 View BILAT CPT Code: FULL RESULT: EXAM: BILATERAL KNEE RADIOGRAPHY EXAM DATE: 12/18/2017 03:55 PM. CLINICAL HISTORY: KNEE Pain, left AND RIGHT. COMPARISON: None. TECHNIQUE: Each knee, 2 views. FINDINGS: Bones: Osteopenia. No definite fracture or other bone lesion. Joints: Joint space narrowing with marginal osteophytes. No definite effusion. Soft Tissues: Unremarkable. IMPRESSION: Moderate degenerative joint disease. RADIA
== END 2017-12-18 15:33 | disposition home or self-care (01) ==
LOC: DI 15:32
PROVIDERS: ATTEND Family Medicine
DX: M17.0 Bilateral primary osteoarthritis of knee (principal); M85.862 Other specified disorders of bone density and structure, left lower leg; M85.861 Other specified disorders of bone density and structure, right lower leg; G62.9 Polyneuropathy, unspecified; R70.0 Elevated erythrocyte sedimentation rate
CPT/HCPCS: 36415; 73565; 80053; 82607; 83036; 84155; 84165; 85025; 85651; 86140

== ENCOUNTER → 2017-12-18 | Outpatient (CLI) | payer MEDICARE, OTHER ==
[2017-12-18 18:50] LABS: BASOPHILS # (AUTO) 0.1 10^3/uL (0.0-0.1); EOSINOPHILS # (AUTO) 0.2 10^3/uL (0.0-0.7); EOSINOPHILS % (AUTO) 1.6 %; HGB - HEMOGLOBIN 14.6 g/dL (12.0-16.0); LYMPHOCYTES # (AUTO) 2.9 10^3/uL (1.5-3.5); LYMPHOCYTES % (AUTO) 30.5 %; MEAN CORPUSCULAR HEMOGLOBIN 29.3 pg (27.0-31.0); MEAN CORPUSCULAR HGB CONC 32.1 g/dL (32.0-36.0); MEAN CORPUSCULAR VOLUME 91.2 fL (81.0-99.0); MONOCYTES # (AUTO) 0.8 10^3/uL (0.0-1.0); NEUTROPHILS # (AUTO) 5.6 10^3/uL (1.5-6.6); NEUTROPHILS % (AUTO) 58.9 %; PLT - PLATELET COUNT 322 10^3/uL (130-450); RED CELL DISTRIBUTION WIDTH 15.1 % (12.0-15.0); WHITE BLOOD COUNT 9.5 x10^3/uL (4.8-10.8)
[2017-12-18 19:11] LABS: ALBUMIN 4.4 g/dL (3.2-5.5); ALBUMIN/GLOBULIN RATIO 1.3 (1.0-2.2); ALKALINE PHOSPHATASE 97 IU/L (42-121); ALT ALANINE AMINOTRANSFERASE 16 IU/L (10-60); AST ASPARTATE AMINOTRANSFERASE 26 IU/L (10-42); BILIRUBIN,TOTAL 0.5 mg/dL (0.2-1.0); BUN - BLOOD UREA NITROGEN 13 mg/dL (6-20); CALCIUM 9.3 mg/dL (8.5-10.3); CARBON DIOXIDE - CO2 25 mmol/L (21-32); CHLORIDE 104 mmol/L (101-111); CREATININE 0.7 mg/dL (0.4-1.0); GFR - MDRD 83 (>89); GLUCOSE 82 mg/dL (70-100); SODIUM 137 mmol/L (135-145); TOTAL PROTEIN 7.7 g/dL (6.7-8.2)
[2017-12-18 19:33] LABS: CRP - C-REACTIVE PROTEIN < 1.0 mg/dL (0-1.0)
[2017-12-18 19:37] LABS: HB2 TOTAL 15.2 g/dL; HEMOGLOBIN A1C 0.56 g/dL; HEMOGLOBIN A1C % 5.5 % (4.6-6.2)
[2017-12-20 23:11] LABS: ALBUMIN 4.3 g/dL (3.8-4.8); ALPHA 1 GLOBULIN 0.3 g/dL (0.2-0.3); ALPHA 2 GLOBULIN 0.7 g/dL (0.5-0.9); BETA 1 GLOBULIN 0.5 g/dL (0.4-0.6); BETA 2 GLOBULIN 0.4 g/dL (0.2-0.5); GAMMA GLOBULIN 1.1 g/dL (0.8-1.7)
== END ==
LOC: LAB.WCP 14:32
PROVIDERS: ATTEND Family Medicine
DX: G62.9 Polyneuropathy, unspecified (principal); R73.01 Impaired fasting glucose; R70.0 Elevated erythrocyte sedimentation rate
CPT/HCPCS: 36415; 80053; 82607; 83036; 84155; 84165; 84443; 85025; 85651; 86140

== ENCOUNTER 2018-05-10 09:10 | Outpatient (CLI) | payer MEDICARE, OTHER ==
--- NOTE | 2018-05-10 15:54 | MRI Report ---
Reason: LUMBAR RADICULOPATHY Procedure Date: 05/10/2018 Accession Number: [id number] / [id number] Procedure: MRI - Lumbar Spine W/O CPT Code: FULL RESULT: EXAM: MRI LUMBAR SPINE WITHOUT CONTRAST EXAM DATE: 05/10/2018 09:36 AM. CLINICAL HISTORY: Lumbar radiculopathy. Low back pain for years. Left leg numbness. Bilateral feet numbness. Remote fall. COMPARISON: None. TECHNIQUE: Multiplanar, multisequence T1-weighted and fluid-sensitive sequences of the lumbar spine from T12 to S1 without contrast. Other: None. FINDINGS: Numbering assumes 5 [id number] lumbar-type vertebral bodies. No suspicious marrow replacement is present. No abnormal signal is seen in the conus medullaris. Grade 1 anterolisthesis of L4 relative to L5 is present. Facet/ligamentum flavum hypertrophy is seen throughout the lumbar spine greatest at L4-L5 and L5-S1. It is severe at L4-L5. T9 through T12: No posterior disk protrusion on the sagittal views. T12 through L2: No posterior disk protrusion. L2-L3: A minimal posterior disk protrusion is seen. There is a far lateral component on the left. L3-L4: No significant posterior disk protrusion. L4-L5: No significant posterior disk protrusion. Medial to the left facet joint note is made of a 4 x 5 x 7 mm anterior posterior by transverse by craniocaudal T2 hypointense peripherally and T2 hyperintense centrally lesion. This demonstrates mass-effect on the left ventral thecal sac and extends into the left lateral recess. Bilateral lateral recess stenosis is seen much greater on the left relative to the right. Moderate central canal stenosis is seen. No foraminal stenosis. L5-S1: No posterior disk protrusion is seen. Superior lateral recess narrowing is present bilaterally. IMPRESSION: 1. Facet/ligamentum flavum hypertrophy, spondylolisthesis, and a left-sided synovial cyst results in moderate central canal stenosis at L4-L5 and bilateral lateral recess stenosis much greater on the left relative to the right. 2. Minimal degenerative disk disease is seen at L2-L3 without central canal or foraminal stenosis. Comment: The following findings are so common in adults without low back pain that while we report their presence, they must be interpreted with caution and in the context of the clinical situation. (Reference Jimenak et al, Spine 2001) Prevalence of findings in patients without low back pain: Disk degeneration (any evidence): 92% Disk desiccation/T2 signal loss: 83% Disk height loss: 56% Disk bulge: 64% Disk protrusion: 32% Annular tear/high intensity zone: 38% RADIA
== END 2018-05-10 09:11 | disposition home or self-care (01) ==
LOC: DI 09:10
PROVIDERS: ATTEND Family Medicine
DX: M51.16 Intervertebral disc disorders with radiculopathy, lumbar region (principal); M48.061 Spinal stenosis, lumbar region without neurogenic claudication
CPT/HCPCS: 72148

== ENCOUNTER 2018-06-22 08:48 | Outpatient (CLI) | payer MEDICARE, OTHER ==
[2018-06-22 09:11] LABS: HGB - HEMOGLOBIN 14.2 g/dL (12.0-16.0); MEAN CORPUSCULAR HEMOGLOBIN 28.7 pg (27.0-31.0); MEAN CORPUSCULAR HGB CONC 31.7 g/dL (32.0-36.0); MEAN CORPUSCULAR VOLUME 90.5 fL (81.0-99.0); MEAN PLATELET VOLUME 7.7 fL (7.9-10.8); RED BLOOD COUNT 4.96 10^6/uL (4.20-5.40); WHITE BLOOD COUNT 8.9 x10^3/uL (4.8-10.8)
[2018-06-22 09:17] LABS: CALCIUM 9.1 mg/dL (8.5-10.3); CREATININE 0.8 mg/dL (0.4-1.0)
[2018-06-22 09:17] LABS: BILIRUBIN,URINE NEGATIVE (NEGATIVE); GLUCOSE, URINE (UA) NEGATIVE (NEGATIVE); KETONES,URINE (UA) NEGATIVE (NEGATIVE); LEUKOCYTE ESTERASE, URINE NEGATIVE (NEGATIVE); NITRITE,URINE NEGATIVE (NEGATIVE); OCCULT BLOOD,URINE TRACE-INTA (NEGATIVE); PH,URINE 5.5 PH (5.0-7.5); PROTEIN,URINE NEGATIVE (NEGATIVE); UROBILINOGEN,URINE 0.2 (NORMAL) E.U./dL (NORMAL)
[2018-06-22 09:23] LABS: CLARITY,URINE CLEAR (CLEAR)
== END 2018-06-22 08:49 | disposition home or self-care (01) ==
LOC: LAB 08:48
PROVIDERS: ATTEND Orthopaedic Surgery Orthopaedic Surgery of the Spine
DX: Z01.818 Encounter for other preprocedural examination (principal); N39.0 Urinary tract infection, site not specified
CPT/HCPCS: 36415; 80048; 81001; 81003; 85027; 93005